=== PATIENT | male | born 1960 | race American Indian/Alaskan Native ===

== ENCOUNTER 2021-05-25 20:09 | Emergency (ER) | payer SELFPAY ==
[2021-05-25] MEDS ORDERED: IBUPROFEN 800 MG TAB PO ONE (21:35)
[2021-05-25] MEDS ORDERED: ACETAMINOPHEN W/CODEINE 300-30 MG TAB PO ONE (21:35)
[2021-05-25] MEDS ORDERED: predniSONE 20 MG TAB PO ONE (21:35)
--- NOTE | 2021-05-25 21:35 | Event Note ---
ED Screening Note Date of service: 05/25/21 Time: 21:34 ED Screening Note: Patient 60-year-old male history of gout presents with bilateral ankle and foot pain and swelling x3 days. Patient has is out of colchicine. There is no fever, chills. There is no chest pain no shortness of breath patient does not have history of heart failure. Patient denies other symptoms at this time. Joint pain is 5/10. Patient denies fall injury or trauma. This initial assessment/diagnostic orders/clinical plan/treatment(s) is/are subject to change based on patients health status, clinical progression and re- assessment by fellow clinical providers in the ED. Further treatment and workup at subsequent clinical providers discretion. Patient/guardian urged not to elope from the ED as their condition may be serious if not clinically assessed and managed. Initial orders include: prednisone, tylenol #3 , ibuprofen
[2021-05-25] MEDS ORDERED: hydrALAZINE 25 MG TAB PO ONE (21:47)
--- NOTE | 2021-05-25 22:17 | Emergency Department Report ---
ED General Adult HPI - General Chief complaint: Extremity Problem,Nontraumatic Stated complaint: BILATERAL FOOT PAIN Time Seen by Provider: 05/25/21 21:36 Source: patient Mode of arrival: Ambulatory Limitations: No Limitations - History of Present Illness Initial comments: Patient 60-year-old male history of gout presents with bilateral ankle and foot pain and swelling x3 days. Patient has is out of colchicine. There is no fever, chills. There is no chest pain no shortness of breath patient does not have history of heart failure. Patient denies other symptoms at this time. Joint pain is 5/10. Patient denies fall injury or trauma. Severity scale (0 -10): 10 - Related Data Previous Rx's Medication Instructions Recorded Last Taken Type Colchicine [Colcrys] 0.6 mg PO DAILY #30 tablet 10/03/16 Unknown Rx Ibuprofen [Motrin] 800 mg PO Q8HR PRN #15 tablet 10/03/16 Unknown Rx Acetaminophen/Codeine [Tylenol 1 tab PO Q6H PRN #12 tab 05/26/21 Unknown Rx /Codeine # 3 tab] Colchicine 0.6 mg PO BID #14 tablet 05/26/21 Unknown Rx amLODIPine 5 mg PO DAILY #30 tab 05/26/21 Unknown Rx predniSONE [Deltasone] 40 mg PO QDAY 5 Days #10 tab 05/26/21 Unknown Rx Allergies Allergy/AdvReac Type Severity Reaction Status Date / Time No Known Allergies Allergy Verified 10/03/16 10:13 ED Review of Systems ROS: Stated complaint: BILATERAL FOOT PAIN Other details as noted in HPI Constitutional: denies: chills, fever Eyes: denies: eye pain, eye discharge, vision change ENT: denies: ear pain, throat pain Respiratory: denies: cough, shortness of breath, wheezing Cardiovascular: denies: chest pain, palpitations Endocrine: no symptoms reported Gastrointestinal: denies: abdominal pain, nausea, diarrhea Genitourinary: denies: urgency, dysuria Musculoskeletal: arthralgia. denies: back pain, joint swelling Skin: denies: rash, lesions Neurological: denies: headache, weakness, paresthesias Psychiatric: denies: anxiety, depression Hematological/Lymphatic: denies: easy bleeding, easy bruising ED Past Medical Hx - Past Medical History Hx Hypertension: Yes Hx Arthritis: Yes Hx Asthma: Yes Additional medical history: gout - Surgical History Additional Surgical History: hernia repair - Social History Smoking Status: Former Smoker - Medications Home Medications: Home Medications Medication Instructions Recorded Confirmed Last Taken Type Colchicine [Colcrys] 0.6 mg PO DAILY #30 tablet 10/03/16 Unknown Rx Ibuprofen [Motrin] 800 mg PO Q8HR PRN #15 tablet 10/03/16 Unknown Rx Acetaminophen/Codeine [Tylenol 1 tab PO Q6H PRN #12 tab 05/26/21 Unknown Rx /Codeine # 3 tab] Colchicine 0.6 mg PO BID #14 tablet 05/26/21 Unknown Rx amLODIPine 5 mg PO DAILY #30 tab 05/26/21 Unknown Rx predniSONE [Deltasone] 40 mg PO QDAY 5 Days #10 tab 05/26/21 Unknown Rx ED Physical Exam - General Limitations: No Limitations General appearance: alert, in no apparent distress - Head Head exam: Present: atraumatic, normocephalic - Eye Eye exam: Present: normal appearance, EOMI Pupils: Present: normal accommodation - ENT ENT exam: Present: mucous membranes moist - Neck Neck exam: Present: normal inspection, full ROM. Absent: tenderness - Respiratory Respiratory exam: Present: normal lung sounds bilaterally. Absent: respiratory distress, wheezes, rales, rhonchi, stridor, chest wall tenderness - Cardiovascular Cardiovascular Exam: Present: regular rate, normal rhythm, normal heart sounds. Absent: systolic murmur, diastolic murmur, rubs, gallop - GI/Abdominal GI/Abdominal exam: Present: soft, normal bowel sounds. Absent: distended, tenderness - Rectal Rectal exam: Present: deferred - Extremities Exam Extremities exam: Present: normal inspection, full ROM, tenderness (bilat feet, distal pulses intact ), normal capillary refill, joint swelling (bilat ankle swelling ankle joint swelling, no erythema no echymosis, no deformity, distal pulses +2 bilat rom intact ). Absent: calf tenderness - Back Exam Back exam: Present: normal inspection, full ROM. Absent: CVA tenderness (R), CVA tenderness (L) - Neurological Exam Neurological exam: Present: alert, oriented X3, CN II-XII intact, normal gait, reflexes normal. Absent: motor sensory deficit - Expanded Neurological Exam Expanded Patient oriented to: Present: person, place, time Speech: Present: fluid speech Motor strength exam: RUE: 5, LUE: 5, RLE: 5, LLE: 5 Best Eye Response ([place]): (4) open spontaneously Best Motor Response ([place]): (6) obeys commands Best Verbal Response ([place]): (5) oriented [place] Total: 15 - Psychiatric Psychiatric exam: Present: normal affect - Skin Skin exam: Present: warm, dry, intact, normal color. Absent: rash ED Course Vital Signs 05/25/21 21:34 Temperature 99.3 F Pulse Rate 88 Respiratory 18 Rate Blood Pressure 188/111 [Right] O2 Sat by Pulse 96 Oximetry ED Medical Decision Making - Medical Decision Making Pain resolved with medications given in ED plan DC to home with prescriptions, follow-up with primary care doctor in 2 to 3 days. Take all medications as prescribed. vital signs are improved Critical care attestation.: If time is entered above; I have spent that time in minutes in the direct care of this critically ill patient, excluding procedure time. ED Disposition Clinical Impression: Gout Qualifiers: Gout site: ankle Gout etiology: unspecified cause Chronicity: acute Laterality: unspecified laterality Qualified Code(s): M10.9 - Gout, unspecified Disposition: DC-01 TO HOME OR SELFCARE Is pt being admited?: No Does the pt Need Aspirin: No Condition: Stable Instructions: Low-Purine Eating Plan Additional Instructions: Take medications as prescribed, follow up with your doctor in 2-3 days , return to emergency if symptoms worsen Prescriptions: amLODIPine 5 mg PO DAILY #30 tab Colchicine 0.6 mg PO BID #14 tablet predniSONE [Deltasone] 40 mg PO QDAY 5 Days #10 tab Acetaminophen/Codeine [Tylenol /Codeine # 3 tab] 1 tab PO Q6H PRN #12 tab PRN Reason: pain Forms: Work/School Release Form(ED) Time of Disposition: 00:34
[2021-05-26 01:35] VITALS: BP 136/91
== END 2021-05-26 01:33 | disposition home or self-care (01) ==
LOC: ED 20:09
DX: M10.9 Gout, unspecified (principal); I10 Essential (primary) hypertension; M19.90 Unspecified osteoarthritis, unspecified site; J45.909 Unspecified asthma, uncomplicated; Z87.891 Personal history of nicotine dependence; Z79.899 Other long term (current) drug therapy; Z98.890 Other specified postprocedural states
CPT/HCPCS: 99282; J7512

== ENCOUNTER 2022-01-19 20:34 | Emergency (ER) | payer SELFPAY ==
[2022-01-19 21:44] VITALS: BP 153/110
[2022-01-20] MEDS ORDERED: ACETAMINOPHEN W/CODEINE 300-30 MG TAB PO ONE (08:05)
[2022-01-20] MEDS ORDERED: predniSONE 50 MG TAB PO ONE (08:05)
--- NOTE | 2022-01-20 08:06 | Emergency Department Report ---
ED Extremity Problem HPI - General Chief complaint: Shoulder Injury Stated complaint: RT SHOLDER PAIN Time Seen by Provider: 01/20/22 07:34 Source: patient Mode of arrival: Ambulatory Limitations: No Limitations - History of Present Illness Initial comments: 61-year-old male with a history of hypertension and gout presents to the ER with complaints of joint pain. Patient states that last week Monday after coming home from work he started having pain in his right neck into his right shoulder which was worse with movements. He denies any injury or trauma. 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 He states that the pain in the right neck and shoulder has improved but lately in the past 4 days he has been having pain mainly in the right wrist radiating up into his right forearm. He denies any injury or trauma to those areas. He reports swelling. He reports no skin discoloration. Patient states that he does not have any medication at home that he takes on a regular basis for his gout. He denies any fever, chills, chest pain, shortness of breath, focal neuro deficits or any additional symptoms at this time. MD Complaint: joint swelling, joint paint -: days(s) (4) - Related Data Previous Rx's Medication Instructions Recorded Last Taken Type Colchicine [Colcrys] 0.6 mg PO DAILY #30 tablet 10/03/16 Unknown Rx Ibuprofen [Motrin] 800 mg PO Q8HR PRN #15 tablet 10/03/16 Unknown Rx Colchicine 0.6 mg PO BID #14 tablet 05/26/21 Unknown Rx amLODIPine 5 mg PO DAILY #30 tab 05/26/21 Unknown Rx Acetaminophen/Codeine [Tylenol 1 tab PO Q6H PRN #12 tab 01/20/22 Unknown Rx /Codeine # 3 tab] predniSONE [Deltasone] 40 mg PO QDAY 5 Days #10 tab 01/20/22 Unknown Rx Allergies Allergy/AdvReac Type Severity Reaction Status Date / Time No Known Allergies Allergy Verified 10/03/16 10:13 ED Review of Systems ROS: Stated complaint: RT SHOLDER PAIN Other details as noted in HPI Comment: All other systems reviewed and negative Constitutional: denies: chills, fever, malaise, weakness Eyes: denies: eye pain, eye discharge, vision change ENT: denies: ear pain, throat pain, dental pain, hearing loss, congestion Respiratory: denies: cough, shortness of breath, wheezing Cardiovascular: denies: chest pain, palpitations Gastrointestinal: denies: abdominal pain, nausea, diarrhea, constipation, hematemesis, hematochezia Genitourinary: denies: urgency, dysuria, frequency, hematuria, discharge, testicular pain, testicular mass Musculoskeletal: joint swelling, arthralgia Skin: denies: rash, lesions Neurological: denies: headache, weakness, numbness, paresthesias, confusion, abnormal gait, vertigo Psychiatric: denies: anxiety, depression, auditory hallucinations, visual hallucinations, homicidal thoughts, suicidal thoughts Hematological/Lymphatic: denies: easy bleeding, easy bruising, swollen glands ED Past Medical Hx - Past Medical History Hx Hypertension: Yes Hx Arthritis: Yes Hx Asthma: Yes Additional medical history: gout - Surgical History Additional Surgical History: hernia repair - Social History Smoking Status: Former Smoker - Medications Home Medications: Home Medications Medication Instructions Recorded Confirmed Last Taken Type Colchicine [Colcrys] 0.6 mg PO DAILY #30 tablet 10/03/16 Unknown Rx Ibuprofen [Motrin] 800 mg PO Q8HR PRN #15 tablet 10/03/16 Unknown Rx Colchicine 0.6 mg PO BID #14 tablet 05/26/21 Unknown Rx amLODIPine 5 mg PO DAILY #30 tab 05/26/21 Unknown Rx Acetaminophen/Codeine [Tylenol 1 tab PO Q6H PRN #12 tab 01/20/22 Unknown Rx /Codeine # 3 tab] predniSONE [Deltasone] 40 mg PO QDAY 5 Days #10 tab 01/20/22 Unknown Rx ED Physical Exam - General Limitations: No Limitations ED Course Vital Signs 01/19/22 21:43 Temperature 98.3 F Pulse Rate 88 Respiratory 16 Rate Blood Pressure 153/110 O2 Sat by Pulse 95 Oximetry Critical care attestation.: If time is entered above; I have spent that time in minutes in the direct care of this critically ill patient, excluding procedure time. ED Disposition Clinical Impression: Gout of right wrist Disposition: 01 HOME / SELF CARE / HOMELESS Is pt being admited?: No Does the pt Need Aspirin: No Condition: Stable Instructions: Low-Purine Eating Plan Additional Instructions: I recommend that you take the prednisone and the Tylenol threes as prescribed to help your symptoms. Follow-up with primary care doctor listed in your discharg e instructions. Return to the ER if your symptoms changes or worsens in any way. Prescriptions: predniSONE [Deltasone] 40 mg PO QDAY 5 Days #10 tab Acetaminophen/Codeine [Tylenol /Codeine # 3 tab] 1 tab PO Q6H PRN #12 tab PRN Reason: pain Referrals: [facility] MD [Primary Care Provider] - 3-5 Days Forms: Work/School Release Form(ED) Time of Disposition: 08:06
== END 2022-01-20 08:57 | disposition home or self-care (01) ==
LOC: ED 20:34
DX: M10.9 Gout, unspecified (principal); I10 Essential (primary) hypertension; M19.90 Unspecified osteoarthritis, unspecified site; J45.909 Unspecified asthma, uncomplicated; Z87.891 Personal history of nicotine dependence
CPT/HCPCS: 99282; J7512